=== PATIENT | female | born 1960 | race Caucasian/White ===

== ENCOUNTER 2019-02-06 11:39 | Emergency (ER) | payer OTHER ==
[2019-02-06] MEDS ORDERED: Sodium Chloride 0.9% 1,000 ML IV ONE ×2 (12:00→13:58)
[2019-02-06] MEDS ORDERED: Ondansetron 4 MG/2 ML SDV IVPUSH ONE ×2 (12:00→13:52)
[2019-02-06] MEDS ORDERED: Famotidine 20 MG/2 ML SDV IVPUSH ONE (12:01)
--- NOTE | 2019-02-06 12:53 | EDM.PDOC ---
ED HPI GENERAL MEDICAL PROBLEM - General Chief Complaint: Gastrointestinal Problem Stated Complaint: VOMITING FOR 24HR Time Seen by Provider: 02/06/19 11:49 Source of Information: Reports: Patient History Limitations: Reports: No Limitations - History of Present Illness INITIAL COMMENTS - FREE TEXT/NARRATIVE: 58y/o female presents to ER for cc diarrhea and N/V that started yesterday. She reports yesterday she had diarrhea x 3 then developed vomiting. She reports that she has vomited to many times to count. She reports she has chills no fever. she states no one else is sick that she has been around. She has not taken anything for her symptoms. She is accompanied by her spouse, Onset Date: 02/05/19 Onset Time: 09:00 Duration: Getting Worse Location: Reports: Abdomen Quality: Reports: Dull Severity: Mild Improves with: Reports: None Worsens with: Reports: None Associated Symptoms: Reports: Fever/Chills, Loss of Appetite, Nausea/Vomiting, Other (reports diarrhea chills, no fever. ) Upper Abdomen Pain Score (Numeric/FACES): 4 Headache Pain Score (Numeric/FACES): 1 - Related Data Allergies Allergy/AdvReac Type Severity Reaction Status Date / Time acetaminophen Allergy Vomiting Verified 02/06/19 11:54 [From Darvocet-N] propoxyphene Allergy Vomiting Verified 02/06/19 11:54 [From Darvocet-N] Home Meds: Home Meds Levothyroxine [Synthroid] 50 mcg PO DAILY 02/06/19 [History] Ondansetron [Zofran ODT] 4 mg PO Q6H PRN 10 Days #20 tab.dis 02/06/19 [Rx] Oseltamivir [Tamiflu] 75 mg PO BID #10 cap 02/06/19 [Rx] Past Medical History Musculoskeletal History: Reports: Other (See Below) Other Musculoskeletal History: left ankle surgery Endocrine/Metabolic History: Reports: Hypothyroidism Social & Family History - Tobacco Use Smoking Status *Q: Current Every Day Smoker Years of Tobacco use: 10 Packs/Tins Daily: 0.2 - Caffeine Use Caffeine Use: Reports: Coffee - Recreational Drug Use Recreational Drug Type: Reports: Marijuana/Hashish ED ROS GENERAL - Review of Systems Review Of Systems: See Below Constitutional: Reports: Chills, Weakness, Decreased Appetite. Denies: Fever, Diaphoresis HEENT: Reports: No Symptoms Respiratory: Reports: No Symptoms Cardiovascular: Reports: No Symptoms Endocrine: Reports: No Symptoms GI/Abdominal: Reports: Diarrhea, Vomiting : Reports: No Symptoms Musculoskeletal: Reports: No Symptoms Skin: Reports: No Symptoms Neurological: Reports: No Symptoms Psychiatric: Reports: No Symptoms Hematologic/Lymphatic: Reports: No Symptoms Immunologic: Reports: No Symptoms ED EXAM, GI/ABD - Physical Exam Exam: See Below Exam Limited By: No Limitations General Appearance: Alert, WD/WN, No Apparent Distress Ears: Normal External Exam, Normal Canal, Hearing Grossly Normal, Normal TMs Nose: Normal Inspection, Normal Mucosa, No Blood Throat/Mouth: Normal Inspection, Normal Lips, Normal Teeth, Normal Gums, Normal Oropharynx, Normal Voice, No Airway Compromise Head: Atraumatic, Normocephalic Neck: Normal Inspection, Supple, Non-Tender, Full Range of Motion Respiratory/Chest: No Respiratory Distress, Lungs Clear, Normal Breath Sounds, No Accessory Muscle Use, Chest Non-Tender Cardiovascular: Normal Peripheral Pulses, Regular Rate, Rhythm, No Edema, No Gallop, No JVD, No Murmur, No Rub GI/Abdominal Exam: Normal Bowel Sounds, Soft, Non-Tender, No Organomegaly, No Distention, No Abnormal Bruit, No Mass, Pelvis Stable Back Exam: Normal Inspection, Full Range of Motion Extremities: Normal Inspection, Normal Range of Motion, Non-Tender, No Pedal Edema, Normal Capillary Refill Neurological: Alert, Oriented, CN II-XII Intact, Normal Cognition, Normal Gait, Normal Reflexes, No Motor/Sensory Deficits Psychiatric: Normal Affect, Normal Mood Skin Exam: Warm, Dry, Intact, Normal Color, No Rash Lymphatic: No Adenopathy () Course - Vital Signs Last Recorded V/S: Last Vital Signs Temp 99.1 F 02/06/19 15:20 Pulse 74 02/06/19 15:20 Resp 18 02/06/19 15:20 BP 127/74 02/06/19 15:20 Pulse Ox 95 02/06/19 15:20 - Orders/Labs/Meds Meds: Medications Discontinued Medications Generic Name Dose Route Start Last Admin Trade Name Freq PRN Reason Stop Dose Admin Diphenhydramine HCl 25 mg 02/06/19 14:35 02/06/19 14:44 Benadryl IVPUSH 02/06/19 14:36 25 mg ONETIME ONE Administration Famotidine 20 mg 02/06/19 12:01 02/06/19 12:18 Pepcid IVPUSH 02/06/19 12:02 20 mg ONETIME ONE Administration Sodium Chloride 1,000 mls @ 999 mls/hr 02/06/19 12:00 02/06/19 12:20 Normal Saline IV 02/06/19 13:00 999 mls/hr ONETIME ONE Administration Sodium Chloride 1,000 mls @ 125 mls/hr 02/06/19 13:30 Normal Saline IV ASDIRECTED BETTY Sodium Chloride 1,000 mls @ 999 mls/hr 02/06/19 13:58 02/06/19 13:25 Normal Saline IV 02/06/19 14:58 999 mls/hr ONETIME ONE Administration Metoclopramide HCl 7.5 mg 02/06/19 14:36 02/06/19 14:42 Reglan IVPUSH 02/06/19 14:37 7.5 mg ONETIME ONE Administration Ondansetron HCl 4 mg 02/06/19 12:00 02/06/19 12:16 Zofran IVPUSH 02/06/19 12:01 4 mg ONETIME ONE Administration Ondansetron HCl 4 mg 02/06/19 13:52 02/06/19 13:56 Zofran IVPUSH 02/06/19 13:53 4 mg ONETIME ONE Administration - Re-Assessments/Exams Free Text/Narrative Re-Assessment/Exam: 02/06/19 13:22 influenza B is positive. She received IVF, Zofran and her condition improved. I will discharge home with Tamiflu and Zofran. Instructed to follow up with her PCP. Instructed to return to the ER for any new or acute worsening symptoms. Patient verbalized understanding and is comfortable with plan for discharge. Departure - Departure Time of Disposition: 15:00 Disposition: Home, Self-Care 01 Condition: Good Clinical Impression: Influenza B - Discharge Information *PRESCRIPTION DRUG MONITORING PROGRAM REVIEWED*: Not Applicable *COPY OF PRESCRIPTION DRUG MONITORING REPORT IN PATIENT MARJORIE: Not Applicable Prescriptions: Ondansetron [Zofran ODT] 4 mg PO Q6H PRN 10 Days #20 tab.dis PRN Reason: Nausea Oseltamivir [Tamiflu] 75 mg PO BID #10 cap Instructions: Influenza, Adult, [id number] Referrals: Beatriz Henson, [facility] [Primary Care Provider] - Forms: ED Department Discharge Additional Instructions: You have diagnosis with influenza B. Continue to hydrate yourself. Your have been given Tamiflu. Take this until it is all gone. Follow up with your PCP. Return to the ER for any new or acute worsening symptoms.
[2019-02-06] MEDS ORDERED: Sodium Chloride 0.9% 1,000 ML IV SCH (13:30)
[2019-02-06] MEDS ORDERED: diphenhydrAMINE 50 MG/ML SDV IVPUSH ONE (14:35)
[2019-02-06] MEDS ORDERED: Metoclopramide 10 MG/2 ML SDV IVPUSH ONE (14:36)
== END 2019-02-06 15:20 | disposition home or self-care (01) ==
LOC: JD.ED 11:39
DX: J10.1 Influenza due to other identified influenza virus with other respiratory manifestations (principal); E03.9 Hypothyroidism, unspecified; F17.210 Nicotine dependence, cigarettes, uncomplicated; Z88.8 Allergy status to other drugs, medicaments and biological substances; Z79.899 Other long term (current) drug therapy
CPT/HCPCS: 87804; 96361; 96374; 96375; 96376; 99284; J1200; J2405; J2765; J3490; J7040